=== PATIENT | female | born 1970 | race Caucasian/White ===

== ENCOUNTER 2019-06-23 03:25 | Emergency (ER) | payer SELFPAY ==
[~2019-06-23] VITALS: Ht 165.1 cm; Wt 63.5 kg
[2019-06-23 10:40] VITALS: BP 134/75
== END 2019-06-23 03:42 | disposition home or self-care (01) ==
LOC: ED 03:25
DX: F10.129 Alcohol abuse with intoxication, unspecified (principal)
CPT/HCPCS: J1200; J1630; J2060